=== PATIENT | female | born 2000 | race Caucasian/White ===

== ENCOUNTER 2021-08-07 00:27 | Emergency (ER) | payer OTHER, SELFPAY ==
[2021-08-07] MEDS ORDERED: Lidocaine 1% w/Epinephrine 1:100K 20 ML VIAL ONE (00:40)
== END 2021-08-07 01:33 | disposition home or self-care (01) ==
LOC: CSHERS 00:27
DX: S01.81XA Laceration without foreign body of other part of head, initial encounter (principal); W54.0XXA Bitten by dog, initial encounter
CPT/HCPCS: 12014

== ENCOUNTER 2021-08-13 14:09 | Emergency (ER) | payer SELFPAY | END 2021-08-13 15:58 | disposition home or self-care (01) | LOC: CSHERS 14:09 | DX: S01.311D Laceration without foreign body of right ear, subsequent encounter (principal) ==

== ENCOUNTER 2021-08-21 04:02 | Emergency (ER) | payer SELFPAY | END 2021-08-21 04:47 | disposition home or self-care (01) | LOC: CSHERS 04:02 | DX: S01.311D Laceration without foreign body of right ear, subsequent encounter (principal) ==

== ENCOUNTER 2024-06-02 12:51 | Emergency (ER) | payer SELFPAY ==
[2024-06-02 13:37] LABS: #Basophils 0.07 10x3/uL (0.0-0.2); #Eosinophils 0.31 10x3/uL (0.0-0.5); #Monocytes 0.56 10x3/uL (0.0-1.1); #Neutrophils 2.97 10x3/uL (1.5-8.4); %Basophils 1.1 % (0.0-2.0); %Eosinophils 4.9 % (0.0-6.0); %Monocytes 8.9 % (0.0-10.0); %Neutrophils 46.9 % (40.0-75.0); Hematocrit 40.7 % (34.9-44.5); Hemoglobin 13.9 g/dL (12.0-15.5); Mean Corpuscular HGB CONC 34.2 g/dL (32.0-36.0); Mean Corpuscular Hemoglobin 30.3 pg (27.0-33.0); Mean Corpuscular Volume 88.7 fL (81.6-98.3); Mean Platelet Volume 9.3 fL (7.4-10.4); Platelet Count 313 10x3/uL (150-450); RBC Distribution Width 13.1 % (11.5-14.5); Red Blood Cell (RBC) Count 4.59 10x6/uL (3.90-5.03); White Blood Cell (WBC) Count 6.3 10x3/uL (3.5-10.5)
[2024-06-02 13:39] LABS: Amphetamine Not Detected (NotDetected); Barbiturates Screen Not Detected (NotDetected); Benzodiazepine Screen Not Detected (NotDetected); Cocaine Metabolite Screen Not Detected (NotDetected); Methadone Not Detected (NotDetected); Methamphetamine Not Detected (NotDetected); Opiate Screen Not Detected (NotDetected); Oxycodone Screen Not Detected (NotDetected); Phencyclidine (PCP) Not Detected (NotDetected); THC/Cannabinoid Screen Not Detected (NotDetected); Tricyclic Screen Not Detected (NotDetected)
[2024-06-02 13:43] LABS: BHCG - Serum Negative (NEGATIVE); Pregs Control Background? CLEAR/WHITE (CLR/WHITE); Pregs Control Bar Appear? YES (CONTROL BAR)
[2024-06-02 13:50] LABS: ALT (SGPT) 17 U/L (8-55); AST (SGOT) 24 U/L (5-34); Acetaminophen Less than 10 mcg/mL (Less than 10); Alcohol 260.7 mg/dL (Less than 10); Alkaline Phosphatase 66 U/L (40-110); Anion Gap 16 mmol/L (10-20); BUN (Urea Nitrogen) 6 mg/dL (7.0-18.7); Bilirubin, Total 0.5 mg/dL (0.2-1.2); Calc. Creatinine Clearance 0 mL/min (70-130); Calcium 8.9 mg/dL (7.8-10.44); Carbon Dioxide 20 mmol/L (22-29); Chloride 111 mmol/L (98-107); Estimated GFR 123; Globulin 2.6 g/dL (2.4-3.5); Glucose 101 mg/dL (70-105); Potassium 3.9 mmol/L (3.5-5.1); Protein, Total 6.6 g/dL (6.0-8.3); Salicylate Less than 8.0 mg/dL (Less than 8.0); Sodium 143 mmol/L (136-145)
[2024-06-02] MEDS ORDERED: OLANZapine 2.5 MG TAB ONE (17:22)
[2024-06-02] MEDS ORDERED: Haloperidol Lactate 5 MG/ML VIAL ONE (21:57)
== END 2024-06-03 09:51 ==
LOC: CSHERS 12:51
DX: S81.812A Laceration without foreign body, left lower leg, initial encounter (principal); S81.811A Laceration without foreign body, right lower leg, initial encounter; S60.511A Abrasion of right hand, initial encounter; R45.851 Suicidal ideations; F10.129 Alcohol abuse with intoxication, unspecified; X78.1XXA Intentional self-harm by knife, initial encounter
CPT/HCPCS: 36415; 80053; 80306; 80307; 84703; 85025; 93005; J1630